=== PATIENT | male | born 1980 | race Caucasian/White ===

== ENCOUNTER 2017-05-16 12:25 | Emergency (ER) | payer OTHER ==
[~2017-05-16] VITALS: Ht 162.6 cm; Wt 68.0 kg
[~2017-05-16 12:25] MED LIST: CEPHALEXIN500 MG PO; HYDROXYZINE HCL50 MG PO; IBUPROFEN800 MG PO; METHOCARBAMOL500 MG PO; METRONIDAZOLE500 MG PO; NORCO 5-325 TA1 EACH PO; ONDANSETRON ODT4 MG SL; ZOFRAN ODT4 MG PO
[2017-05-16] MEDS ORDERED: ONDANSETRON ODT8 MG PO (13:40)
== END 2017-05-16 14:35 | disposition home or self-care (01) ==
LOC: ED 12:25
DX: K52.9 Noninfective gastroenteritis and colitis, unspecified (principal); F17.200 Nicotine dependence, unspecified, uncomplicated; Z88.0 Allergy status to penicillin
CPT/HCPCS: 99283

== ENCOUNTER 2017-09-25 17:25 | Emergency (ER) | payer OTHER ==
[~2017-09-25] VITALS: Ht 162.6 cm; Wt 68.0 kg
--- OUTSIDE RECORDS SUMMARY | ~2017-09-25 | XMS | Clinical Summary ---
Demographics + + + | Address | [address] | | | [place] [address] | + + + | Home Phone | | + + + | Preferred Language | Unknown | + + + | Marital Status | Single | + + + | Islam Affiliation | NON | + + + | Race | White | + + + | Ethnic Group | Not or | + + + Author + + + | Author | NON REVENUE LOCATIONS | + + + | Organization | NON REVENUE LOCATIONS | + + + | Address | Unknown | + + + | Phone | Unavailable | + + + Support +------+ +---------+ + | Name | Relationship | Address | Phone | +------+ +---------+ + ECON | Unknown | | +------+ +---------+ + Care Team Providers + +------+ + | Care Construction Area Manager Name | Role | Phone | + +------+ + PP | Unavailable | + +------+ + Source Comments [facility]CI is fully live on both [facility] and [facility] Allergies Not on File Current Medications Not on file Active Problems Not on file Social History + +-------+ +--------+------+ | Tobacco Use | Types | Packs/Day | Years | Date | | | | | Used | | + +-------+ +--------+------+ | Never Assessed | | | | | + +-------+ +--------+------+ + + + | Sex Assigned at | Date Recorded | | | | + + + | Not on file | | + + + Plan of Treatment + + + + + | Health Maintenance | Due Date | Last Done | Comments | + + + + + | INFLUENZA VACCINE | | | | | (FLU SHOT) | 7 | | | + + + + + Results Not on filefrom Last 3 Months"
[~2017-09-25 17:25] MED LIST changes: +ONDANSETRON ODT8 MG PO
[2017-09-25] MEDS ORDERED: ZITHROMAX250 MG PO (17:48)
[2017-09-25] MEDS ORDERED: METHYLPREDNISOLO4 M1 PO (17:48)
== END 2017-09-25 17:55 | disposition home or self-care (01) ==
LOC: ED 17:25
DX: J40 Bronchitis, not specified as acute or chronic (principal); Z88.0 Allergy status to penicillin; Z87.891 Personal history of nicotine dependence
CPT/HCPCS: 99283

== ENCOUNTER 2017-10-12 19:08 | Emergency (ER) | payer OTHER ==
[~2017-10-12] VITALS: Ht 162.6 cm; Wt 72.6 kg
[~2017-10-12 19:08] MED LIST changes: +METHYLPREDNISOLO4 M1 PO; +ZITHROMAX250 MG PO
[2017-10-12] MEDS ORDERED: NYQUIL PO (19:21)
[2017-10-12] MEDS ORDERED: TESSALON PERLE100 MG PO (22:07)
[2017-10-12] MEDS ORDERED: DOXYCYCLINE HY100 MG PO (22:07)
== END 2017-10-12 22:50 | disposition home or self-care (01) ==
LOC: ED 19:08
DX: J20.9 Acute bronchitis, unspecified (principal); F17.200 Nicotine dependence, unspecified, uncomplicated; Z88.0 Allergy status to penicillin
CPT/HCPCS: 71020; 99283

== ENCOUNTER 2018-01-26 20:44 | Emergency (ER) | payer OTHER ==
[~2018-01-26] VITALS: Ht 162.6 cm; Wt 72.6 kg
--- OUTSIDE RECORDS SUMMARY | ~2018-01-26 | XMS | Clinical Summary ---
Demographics + + + | Address | [address] | | | [place] [address] | + + + | Home Phone | | + + + | Preferred Language | Unknown | + + + | Marital Status | Single | + + + | Jehovah'S Witness Affiliation | NON | + + + [...] | Unavailable | + + + Support + + +---------+ + | Name | Relationship | Address | Phone | + + +---------+ + | AVANI BYNUM | ECON | Unknown | | + + +---------+ + Care Team Providers + +------+ + | Care Racing Mechanic Name | Role | Phone | + +------+ + PP | Unavailable | + +------+ + Source Comments FRANCI is fully live on both [facility] and [facility] InPatient.[facility] Allergies Not on File Current Medications Not [...] | | | | (FLU SHOT) | 8 | | | + + + + + Results Not on filefrom Last 3 Months"
--- OUTSIDE RECORDS SUMMARY | ~2018-01-26 | XMS | Clinical Summary ---
Demographics + + + | Address | [address] | | | [place] [address] | + + + | Home Phone | | + + + | Preferred Language | Unknown | + + + | Marital Status | Single | + + + | Jain Affiliation | NON | + + + [...] Team Providers + +------+ + | Care Correctional Supply Supervisor Name | Role | Phone | + +------+ + PP | Unavailable | + +------+ + Source Comments [facility]CI is fully live on both [facility] and [facility] InPatient.[facility] Allergies Not on File Current Medications [...]
[~2018-01-26 20:44] MED LIST changes: +DOXYCYCLINE HY100 MG PO; +NYQUIL PO; +TESSALON PERLE100 MG PO
== END 2018-01-26 22:59 | disposition home or self-care (01) ==
LOC: ED 20:44
DX: J20.9 Acute bronchitis, unspecified (principal); F17.200 Nicotine dependence, unspecified, uncomplicated; Z88.0 Allergy status to penicillin
CPT/HCPCS: 71046; 99283

== ENCOUNTER 2018-04-20 08:02 | Emergency (ER) | payer OTHER ==
[~2018-04-20] VITALS: Ht 162.6 cm; Wt 68.0 kg
== END 2018-04-20 10:26 | disposition home or self-care (01) ==
LOC: ED 08:02
PROC: 4A0D7LZ Measurement of Urinary Volume, Via Natural or Artificial Opening (ICD-10-PCS; principal; 2018-04-20)
DX: N20.1 Calculus of ureter (principal); F17.200 Nicotine dependence, unspecified, uncomplicated; Z88.0 Allergy status to penicillin
CPT/HCPCS: 51798; 99284

== ENCOUNTER 2018-07-06 00:50 | Emergency (ER) | payer OTHER ==
[~2018-07-06] VITALS: Ht 162.6 cm; Wt 68.0 kg
--- OUTSIDE RECORDS SUMMARY | ~2018-07-06 | XMS | Clinical Summary ---
Demographics + + + | Address | [address] | | | [place] [address] | + + + | Home Phone | | + + + | Preferred Language | Unknown | + + + | Marital Status | Single | + + + | Temple Affiliation | NON | + + + [...] Team Providers + +------+ + | Care Phone Manager Name | Role | Phone | + +------+ + PP | Unavailable | + +------+ + Source Comments FRANCI is fully live on both [facility] and [facility] InPatient.[facility] Allergies Not on File Current Medications Not [...]
--- OUTSIDE RECORDS SUMMARY | ~2018-07-06 | XMS | Clinical Summary ---
Demographics + + + | Address | [address] | | | [place] [address] | + + + | Home Phone | | + + + | Preferred Language | Unknown | + + + | Marital Status | Single | + + + | Yazdanism Affiliation | NON | + + + [...] Team Providers + +------+ + | Care Fruit Buying Grader Name | Role | Phone | + +------+ + PP | Unavailable | + +------+ + Source Comments FRANCI is fully live on both [facility] and [facility] InPatient.[facility] Allergies Not on File Current Medications [...]
[2018-07-06] MEDS ORDERED: NORCO 5-325 TA1 EACH PO (01:41)
[2018-07-06] MEDS ORDERED: KEFLEX500 MG PO (01:41)
== END 2018-07-06 02:00 | disposition home or self-care (01) ==
LOC: ED 00:50
DX: S91.332A Puncture wound without foreign body, left foot, initial encounter (principal); W45.8XXA Other foreign body or object entering through skin, initial encounter; F17.200 Nicotine dependence, unspecified, uncomplicated; Z88.0 Allergy status to penicillin
CPT/HCPCS: 73660; 99283

== ENCOUNTER 2021-08-05 10:16 | Emergency (ER) | payer OTHER ==
[~2021-08-05] VITALS: Ht 162.6 cm; Wt 83.7 kg
[~2021-08-05 10:16] MED LIST changes: +KEFLEX500 MG PO
[2021-08-05] MEDS ORDERED: ZOFRAN4 MG PO (10:37)
[2021-08-05] MEDS ORDERED: LOMOTIL TABLET1 EACH PO (12:11)
== END 2021-08-05 13:07 | disposition home or self-care (01) ==
LOC: ED 10:16
DX: K52.9 Noninfective gastroenteritis and colitis, unspecified (principal); F17.200 Nicotine dependence, unspecified, uncomplicated; Z88.0 Allergy status to penicillin
CPT/HCPCS: 80053; 81001; 83690; 85025; 96361; 96374; 99284-25; J2405; J7030

== ENCOUNTER 2022-09-30 13:25 | Emergency (ER) | payer OTHER ==
[~2022-09-30] VITALS: Ht 162.6 cm; Wt 83.7 kg
[~2022-09-30 13:25] MED LIST changes: +LOMOTIL TABLET1 EACH PO; +ZOFRAN4 MG PO
[2022-09-30] MEDS ORDERED: OCUFLOX5 ML OPTH (17:33)
== END 2022-09-30 17:45 | disposition home or self-care (01) ==
LOC: ED 13:25
DX: T15.02XA Foreign body in cornea, left eye, initial encounter (principal); F17.200 Nicotine dependence, unspecified, uncomplicated; Z88.0 Allergy status to penicillin; X58.XXXA Exposure to other specified factors, initial encounter
CPT/HCPCS: 65222; 99283-25